=== PATIENT | female | born 1935 | race Caucasian/White ===

== ENCOUNTER 2020-06-04 08:25 | Inpatient (IN) | payer MEDICARE ==
--- NOTE | 2020-06-04 08:45 | ED ---
General Adult HPI - General Chief complaint: Extremity Problem,Nontraumatic Stated complaint: toe infection Time Seen by Provider: 06/04/20 08:30 Source: patient, family, RN notes reviewed, old records reviewed, Caregiver Mode of arrival: ambulatory Limitations: no limitations - History of Present Illness Initial comments: This is a 84-year-old female who presents emergency Department with a black right first toe. Caregiver states that last week it was red and looked may be infected but patient was unwilling to go see her doctor. When she saw the toe today she knew she had been patient immediately. Patient states the total burn his little brother neck has no complaints. The rest of the foot has no signs of infection. Patient's had no fever chills. Patient denies any injury. - Related Data Home Medications Medication Instructions Recorded Confirmed Enalapril [Vasotec] 5 mg PO DAILY 06/04/20 06/04/20 Levothyroxine Sodium [Synthroid] 100 mcg PO DAILY 06/04/20 06/04/20 Metoprolol Tartrate [Lopressor] 50 mg PO DAILY 06/04/20 06/04/20 Potassium Chloride ER [K-Dur 10] 10 meq PO DAILY 06/04/20 06/04/20 Temazepam [Restoril] 15 mg PO HS PRN 06/04/20 06/04/20 carBAMazepine [TEGretol] 400 mg PO TID 06/04/20 06/04/20 Allergies Allergy/AdvReac Type Severity Reaction Status Date / Time No Known Allergies Allergy Verified 06/04/20 10:03 Review of Systems ROS Statement: Those systems with pertinent positive or pertinent negative responses have been documented in the HPI. ROS Other: All systems not noted in ROS Statement are negative. Past Medical History Past Medical History: Hypertension, Thyroid Disorder Additional Past Medical History / Comment(s): Jaw pain, History of Any Multi-Drug Resistant Organisms: None Reported Past Surgical History: No Surgical Hx Reported Past Psychological History: No Psychological Hx Reported Smoking Status: Former smoker Past Alcohol Use History: None Reported Past Drug Use History: None Reported General Exam - General Exam Comments Initial Comments: GENERAL: Patient is well-developed and well-nourished. Patient is nontoxic and well- hydrated and is in no acute distress. ENT: Neck is soft and supple. No significant lymphadenopathy is noted. Oropharynx is clear. Moist mucous membranes. Neck has full range of motion without eliciting any pain. EYES: The sclera were anicteric and conjunctiva were pink and moist. Extraocular movements were intact and pupils were equal round and reactive to light. Eyelids were unremarkable. PULMONARY: Unlabored respirations. Good breath sounds bilaterally. No audible rales rhonchi or wheezing was noted. CARDIOVASCULAR: There is a regular rate and rhythm without any murmurs gallops or rubs. ABDOMEN: Soft and nontender with normal bowel sounds. SKIN: Skin is clear with no lesions or rashes and otherwise unremarkable. NEUROLOGIC: Patient is alert and oriented x3. Cranial nerves II through XII are grossly intact. Motor and sensory are also intact. Normal speech, volume and content. Symmetrical smile. MUSCULOSKELETAL: Normal extremities with adequate strength and full range of motion. Patient's first right toe is black from the tip down to the MTP joint patient has no sensation in that toe LYMPHATICS: No significant lymphadenopathy is noted PSYCHIATRIC: Normal psychiatric evaluation. Limitations: no limitations Course Vital Signs 06/04/20 08:29 Temperature 97.4 F L Pulse Rate 70 Respiratory 20 Rate Blood Pressure 127/79 O2 Sat by Pulse 98 Oximetry Medical Decision Making - Medical Decision Making X-ray of the toe shows I spoke with Dr. Marcos he agreed to admit the patient admitted the patient I wrote admitting orders and I consult as the surgery - Lab Data Result diagrams: 06/04/20 09:19 06/04/20 09:19 Lab Results 06/04/20 06/04/20 06/04/20 Range/Units 09:19 09:19 09:19 WBC 6.9 (3.8-10.6) k/uL RBC 3.73 L (3.80-5.40) m/uL Hgb 11.4 (11.4-16.0) gm/dL Hct 35.9 (34.0-46.0) % MCV 96.3 (80.0-100.0) fL MCH 30.6 (25.0-35.0) pg MCHC 31.8 (31.0-37.0) g/dL RDW 13.1 (11.5-15.5) % Plt Count 314 (150-450) k/uL Neutrophils % 62 % Lymphocytes % 28 % Monocytes % 6 % Eosinophils % 2 % Basophils % 1 % Neutrophils # 4.3 (1.3-7.7) k/uL Lymphocytes # 1.9 (1.0-4.8) k/uL Monocytes # 0.4 (0-1.0) k/uL Eosinophils # 0.1 (0-0.7) k/uL Basophils # 0.0 (0-0.2) k/uL PT 9.6 (9.0-12.0) sec INR 0.9 (<1.2) APTT 27.4 (22.0-30.0) sec Sodium 138 (137-145) mmol/L Potassium 3.9 (3.5-5.1) mmol/L Chloride 104 (98-107) mmol/L Carbon Dioxide 26 (22-30) mmol/L Anion Gap 8 mmol/L BUN 19 H (7-17) mg/dL Creatinine 0.59 (0.52-1.04) mg/dL Est GFR (CKD-EPI)AfAm >90 (>60 ml/min/1.73 sqM) Est GFR (CKD-EPI)NonAf 83 (>60 ml/min/1.73 sqM) Glucose 94 (74-99) mg/dL Calcium 9.2 (8.4-10.2) mg/dL Total Bilirubin 0.5 (0.2-1.3) mg/dL AST 24 (14-36) U/L ALT 17 (4-34) U/L Alkaline Phosphatase 96 (38-126) U/L Total Protein 6.8 (6.3-8.2) g/dL Albumin 3.8 (3.5-5.0) g/dL Disposition Clinical Impression: Gangrenous toe Disposition: ADMITTED IP TO THIS [facility] Referrals: Sergio Marcos MD [Primary Care Provider] - 1-2 days Time of Disposition: 10:08
[2020-06-04 09:33] LABS: Basophils % (A) 1 %; Eosinophils # (A) 0.1 k/uL (0-0.7); Eosinophils % (A) 2 %; HCT 35.9 % (34.0-46.0); HGB 11.4 gm/dL (11.4-16.0); Lymphocytes # (A) 1.9 k/uL (1.0-4.8); Lymphocytes % (A) 28 %; MCH 30.6 pg (25.0-35.0); MCHC 31.8 g/dL (31.0-37.0); MCV 96.3 fL (80.0-100.0); Mean Platelet Volume 7.4; Monocytes # (A) 0.4 k/uL (0-1.0); Monocytes % (A) 6 %; Neutrophils # (A) 4.3 k/uL (1.3-7.7); Neutrophils % (A) 62 %; Platelet Count 314 k/uL (150-450); RBC 3.73 m/uL (3.80-5.40); RDW 13.1 % (11.5-15.5); WBC 6.9 k/uL (3.8-10.6)
[2020-06-04 09:41] LABS: INR 0.9 (<1.2); Partial Thromboplastin Time 27.4 sec (22.0-30.0); Prothrombin Time 9.6 sec (9.0-12.0)
[2020-06-04 09:44] LABS: ALT 17 U/L (4-34); AST 24 U/L (14-36); African American GFR (CKD) >90 (>60 ml/min/1.73 sqM); Albumin 3.8 g/dL (3.5-5.0); Alkaline Phosphatase 96 U/L (38-126); Anion Gap 8 mmol/L; Blood Urea Nitrogen 19 mg/dL (7-17); Calcium 9.2 mg/dL (8.4-10.2); Carbon Dioxide 26 mmol/L (22-30); Chloride 104 mmol/L (98-107); Glucose 94 mg/dL (74-99); Non-African American GFR(CKD) 83 (>60 ml/min/1.73 sqM); Potassium 3.9 mmol/L (3.5-5.1); Sodium 138 mmol/L (137-145); Total Bilirubin 0.5 mg/dL (0.2-1.3); Total Protein 6.8 g/dL (6.3-8.2)
--- NOTE | 2020-06-04 10:08 | XR ---
EXAMINATION TYPE: XR toes RT DATE OF EXAM: 06/04/2020 COMPARISON: None HISTORY: Necrotic toe great toe TECHNIQUE: Three-view right great toe FINDINGS: Valgus deformity of the first digit is evident. Joint spaces and mild narrowing. No acute f ractures evident. No suspicious erosion is identified. IMPRESSION: 1. No suspicious acute changes radiographically apparent.
[2020-06-04] MEDS ORDERED: SODIUM CHLORIDE 0.9% 1,000 ML IV ONE (10:10)
[2020-06-04] MEDS: ACETAMINOPHEN TAB 325 MG TAB PO PRN ×2 (12:53→21:29)
--- NOTE | 2020-06-04 13:45 | P.GSCN ---
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 and patient also had some ankle surgery on the left leg On examination neck is supple no bruit appreciated Chest first and second sound normal good entry both lungs Abdomen abdomen is soft nontender Vascular examination femorals are 1+ on the right side left side is not palpable right foot posterior to dorsal pedis no Doppler signal noted left foot posterior tibial dorsal pedis has a Doppler signal right foot has a big toe gangrene with mild cellulitis Plan is we will arrange for angiogram BUN/creatinine is within normal limit he we can't access this by femoral approach and we will do CTA with runoff follow with you Past Medical History Past Medical History: Hypertension, Thyroid Disorder Additional Past Medical History / Comment(s): Jaw pain, History of Any Multi-Drug Resistant Organisms: None Reported Past Surgical History: Back Surgery, Breast Surgery, Hysterectomy Additional Past Surgical History / Comment(s): fractured left ankle, fractured right arm, left breast partial removal for beign tumor Past Psychological History: No Psychological Hx Reported Smoking Status: Former smoker Past Alcohol Use History: None Reported Past Drug Use History: None Reported Medications and Allergies Home Medications Medication Instructions Recorded Confirmed Type Enalapril [Vasotec] 5 mg PO DAILY 06/04/20 06/04/20 History Levothyroxine Sodium [Synthroid] 100 mcg PO DAILY 06/04/20 06/04/20 History Metoprolol Tartrate [Lopressor] 50 mg PO DAILY 06/04/20 06/04/20 History Potassium Chloride ER [K-Dur 10] 10 meq PO DAILY 06/04/20 06/04/20 History Temazepam [Restoril] 15 mg PO HS PRN 06/04/20 06/04/20 History carBAMazepine [TEGretol] 400 mg PO TID 06/04/20 06/04/20 History Allergies Allergy/AdvReac Type Severity Reaction Status Date / Time No Known Allergies Allergy Verified 06/04/20 10:03 Surgical - Exam Vital Signs Temp Pulse Resp BP Pulse Ox 97.4 F L 70 20 127/79 98 06/04/20 08:29 06/04/20 08:29 06/04/20 08:29 06/04/20 08:29 06/04/20 08:29 Results - Labs 06/04/20 09:19 06/04/20 09:19 Abnormal Lab Results - Last 24 Hours (Table) 06/04/20 06/04/20 Range/Units 09:19 09:19 RBC 3.73 L (3.80-5.40) m/uL BUN 19 H (7-17) mg/dL Diabetes panel 06/04/20 Range/Units 09:19 Sodium 138 (137-145) mmol/L Potassium 3.9 (3.5-5.1) mmol/L Chloride 104 (98-107) mmol/L Carbon Dioxide 26 (22-30) mmol/L BUN 19 H (7-17) mg/dL Creatinine 0.59 (0.52-1.04) mg/dL Glucose 94 (74-99) mg/dL Calcium 9.2 (8.4-10.2) mg/dL AST 24 (14-36) U/L ALT 17 (4-34) U/L Alkaline Phosphatase 96 (38-126) U/L Total Protein 6.8 (6.3-8.2) g/dL Albumin 3.8 (3.5-5.0) g/dL Calcium panel 06/04/20 Range/Units 09:19 Calcium 9.2 (8.4-10.2) mg/dL Albumin 3.8 (3.5-5.0) g/dL Pituitary panel 06/04/20 Range/Units 09:19 Sodium 138 (137-145) mmol/L Potassium 3.9 (3.5-5.1) mmol/L Chloride 104 (98-107) mmol/L Carbon Dioxide 26 (22-30) mmol/L BUN 19 H (7-17) mg/dL Creatinine 0.59 (0.52-1.04) mg/dL Glucose 94 (74-99) mg/dL Calcium 9.2 (8.4-10.2) mg/dL Adrenal panel 06/04/20 Range/Units 09:19 Sodium 138 (137-145) mmol/L Potassium 3.9 (3.5-5.1) mmol/L Chloride 104 (98-107) mmol/L Carbon Dioxide 26 (22-30) mmol/L BUN 19 H (7-17) mg/dL Creatinine 0.59 (0.52-1.04) mg/dL Glucose 94 (74-99) mg/dL Calcium 9.2 (8.4-10.2) mg/dL Total Bilirubin 0.5 (0.2-1.3) mg/dL AST 24 (14-36) U/L ALT 17 (4-34) U/L Alkaline Phosphatase 96 (38-126) U/L Total Protein 6.8 (6.3-8.2) g/dL Albumin 3.8 (3.5-5.0) g/dL
[2020-06-04] MEDS ORDERED: SODIUM CHLORIDE 0.9% 1,000 ML in EMPTY BAG 1 BAG IV ONE (15:40)
[2020-06-04 16:22] LABS: Basophils % (A) 1 %; Eosinophils # (A) 0.1 k/uL (0-0.7); Eosinophils % (A) 2 %; HCT 32.3 % (34.0-46.0); HGB 10.6 gm/dL (11.4-16.0); Lymphocytes # (A) 1.1 k/uL (1.0-4.8); Lymphocytes % (A) 16 %; MCH 31.8 pg (25.0-35.0); MCHC 32.8 g/dL (31.0-37.0); MCV 96.8 fL (80.0-100.0); Mean Platelet Volume 7.3; Monocytes # (A) 0.4 k/uL (0-1.0); Monocytes % (A) 6 %; Neutrophils # (A) 4.9 k/uL (1.3-7.7); Neutrophils % (A) 74 %; Platelet Count 272 k/uL (150-450); RBC 3.33 m/uL (3.80-5.40); RDW 12.8 % (11.5-15.5); WBC 6.6 k/uL (3.8-10.6)
[2020-06-04 16:55] LABS: African American GFR (CKD) >90 (>60 ml/min/1.73 sqM); Anion Gap 6 mmol/L; Blood Urea Nitrogen 19 mg/dL (7-17); Calcium 8.7 mg/dL (8.4-10.2); Carbon Dioxide 26 mmol/L (22-30); Chloride 104 mmol/L (98-107); Glucose 121 mg/dL (74-99); Non-African American GFR(CKD) 87 (>60 ml/min/1.73 sqM); Potassium 3.6 mmol/L (3.5-5.1); Sodium 136 mmol/L (137-145)
[2020-06-04] MEDS: carBAMazepine 200 MG TAB PO SCH ×2 (17:05→21:41)
[2020-06-04] MEDS ORDERED: TEMAZEPAM 15 MG CAP PO SCH (21:00)
[2020-06-05 05:40] LABS: Glucose,Whole Blood 88 mg/dL (75-99)
[2020-06-05] MEDS: LEVOTHYROXINE 100 MCG TAB PO SCH (05:40)
[2020-06-05] MEDS: POTASSIUM CHLORIDE ER 10 MEQ TAB.ER.PRT PO SCH (05:40)
[2020-06-05] MEDS: carBAMazepine 200 MG TAB PO SCH ×3 (05:40→21:18)
[2020-06-05] MEDS: METOPROLOL TARTRATE 50 MG TAB PO SCH (05:40)
[2020-06-05 07:13] LABS: Glucose,Whole Blood 96 mg/dL (75-99)
[2020-06-05] MEDS ORDERED: IV FLUID CONTINUATION 1,000 ML IV ONE (08:00)
[2020-06-05] MEDS: MIDAZOLAM 2 MG/2 ML VIAL IV ONE ×2 (08:10→08:28)
[2020-06-05] MEDS ORDERED: LIDOCAINE 1% INJ 10MG/ML (20 ML MDV) SQ ONE ×3 (08:20→08:50)
[2020-06-05] MEDS: fentaNYL (PF) 50 MCG/ML 2 ML AMP IV ONE ×2 (08:26→08:51)
[2020-06-05] MEDS ORDERED: lisinopriL 5 MG TAB PO SCH (09:00)
[2020-06-05] MEDS ORDERED: IOPAMIDOL-250 100ML BTL INTRAARTER ONE ×2 (09:04)
[2020-06-05] MEDS ORDERED: KETOROLAC 30 MG/ML 1 ML VIAL IVP PRN (09:41)
[2020-06-05] MEDS ORDERED: QUEtiapine 25 MG TAB PO PRN (09:53)
[2020-06-05 11:22] LABS: Glucose,Whole Blood 111 mg/dL (75-99)
[2020-06-05 13:49] LABS: Hemoglobin A1C 5.3 % (4.0-6.0)
--- NOTE | 2020-06-05 14:10 | P.CONS ---
History of Present Illness - Reason for Consult Consult date: 06/04/20 Right big toe gangrene and antibiotic recommendations Requesting physician: Matt Garduno - Chief Complaint Right big toe discoloration x few week - History of Present Illness Patient is a 84-year-old female who has been brought into the ER for evaluation of black discoloration of her right big toe the patient has been going on for couple of weeks it started after the patient cut her nails very short subsequently she noticed the right big toe becoming swollen and red and subsequently changed color to become more of a blackish discoloration patient was noticed to have more swelling and redness to the right big toe last week and the patient was advised to go to the hospital however she refused with persistent worsening of her right big toe the caregiver decided to bring her to the ER this morning, patient reportedly was afebrile she did have a normal white count patient did have x-rays of the right foot we did shows no suspicious use acute changes radiologically apparent with concern for possible cellulitis with a dry gangrene infection disease was consulted for recommendations regarding antibiotic therapy Review of Systems Positive point has been mentioned in the HPI rest of the systems are negative Past Medical History Past Medical History: Hypertension, Thyroid Disorder Additional Past Medical History / Comment(s): Jaw pain, History of Any Multi-Drug Resistant Organisms: None Reported Past Surgical History: Back Surgery, Breast Surgery, Hysterectomy Additional Past Surgical History / Comment(s): fractured left ankle, fractured right arm, left breast partial removal for beign tumor Past Psychological History: No Psychological Hx Reported Smoking Status: Former smoker Past Alcohol Use History: None Reported Past Drug Use History: None Reported Medications and Allergies Home Medications Medication Instructions Recorded Confirmed Type Enalapril [Vasotec] 5 mg PO DAILY 06/04/20 06/04/20 History Levothyroxine Sodium [Synthroid] 100 mcg PO DAILY 06/04/20 06/04/20 History Metoprolol Tartrate [Lopressor] 50 mg PO DAILY 06/04/20 06/04/20 History Potassium Chloride ER [K-Dur 10] 10 meq PO DAILY 06/04/20 06/04/20 History Temazepam [Restoril] 15 mg PO HS PRN 06/04/20 06/04/20 History carBAMazepine [TEGretol] 400 mg PO TID 06/04/20 06/04/20 History Allergies Allergy/AdvReac Type Severity Reaction Status Date / Time Latex, Natural Rubber Allergy Rash/Hives Verified 06/04/20 14:39 Physical Exam Vitals: Vital Signs Temp Pulse Pulse Resp BP BP Pulse Ox 06/04/20 20:24 98.5 F 69 18 118/68 94 L 06/04/20 16:00 58 L 20 06/04/20 14:10 96.0 F L 58 L 20 162/89 98 06/04/20 11:54 97.6 F 72 18 146/68 97 06/04/20 10:54 75 17 139/67 97 06/04/20 08:29 97.4 F L 70 20 127/79 98 Intake and Output 06/04/20 06/04/20 06/04/20 06:59 14:59 22:59 Intake Total 200 480 Balance 200 480 Intake: Oral 200 480 Other: Voiding Method Toilet Toilet Weight 72.575 kg GENERAL DESCRIPTION: An elderly female lying in bed, no distress. No tachypnea or accessory muscle of respiration use. HEENT: Shows Pallor , no scleral icterus. Oral mucous membrane is dry. No pharyngeal erythema or thrush NECK: Trachea central, no thyromegaly. LUNGS: Unlabored breathing. Clear to auscultation anteriorly. No wheeze or crackle. HEART: S1, S2, regular rate and rhythm. No loud murmur ABDOMEN: Soft, no tenderness , guarding or rigidity, no organomegaly EXTREMITIES: No edema of feet. Right big toe necrotic with some swelling and minimal redness or foul-smelling drainage SKIN: No rash, no masses palpable. NEUROLOGICAL: The patient is awake, alert, oriented x3, mood and affect normal. Results CBC & Chem 7: 06/04/20 15:44 06/04/20 15:44 Labs: Abnormal Lab Results - Last 24 Hours (Table) 06/04/20 06/04/20 06/04/20 Range/Units 09:19 09:19 15:44 RBC 3.73 L 3.33 L (3.80-5.40) m/uL Hgb 10.6 L (11.4-16.0) gm/dL Hct 32.3 L (34.0-46.0) % Sodium (137-145) mmol/L BUN 19 H (7-17) mg/dL Glucose (74-99) mg/dL 07/17/20 Range/Units 15:44 RBC (3.80-5.40) m/uL Hgb (11.4-16.0) gm/dL Hct (34.0-46.0) % Sodium 136 L (137-145) mmol/L BUN 19 H (7-17) mg/dL Glucose 121 H (74-99) mg/dL Assessment and Plan Assessment: 1-patient with her right big toe gangrene which may have started as a trauma from her cutting the nail short with subsequent cellulitis and now with adenosine which is mostly dry however there is concern for possible secondary infection likely from gram-positive skin estrella, in this patient with no recent history of antibiotic exposure no history of diabetes or PAD (1) Gangrenous toe Current Visit: Yes Status: Acute Code(s): I96 - GANGRENE, NOT ELSEWHERE CLASSIFIED SNOMED Code(s): 433947131 Plan: 1- we will empirically start the patient on cefazolin 2 g every 8 hours 2-drug protective dressing to the right big toe and await angiogram scheduled for tomorrow We will follow on clinical condition and cultures to further adjust medication if needed Thank you for this consultation will follow this patient with you Time with Patient: Greater than 30
--- NOTE | 2020-06-05 14:42 | PN ---
PROGRESS NOTE DATE OF SERVICE: 06/05/2020 REASON FOR FOLLOW UP: Right big toe gangrene with question of cellulitis. INTERVAL HISTORY: Patient is currently afebrile. Patient is breathing comfortably. The patient is status post angiogram this morning with results currently pending. No chest pain or cough. No pain or worsening pain in the right big toe. PHYSICAL EXAMINATION: Blood pressure 127/67 with a pulse of 77, temperature 97.5. She is 97% on room air. General description is an elderly female lying in bed in no distress. Respiratory system: Unlabored breathing, clear to auscultation anteriorly. Heart S1, S2. Regular rate and rhythm. Abdomen soft, no tenderness. Right big toe with necrotic changes. Minimal surrounding redness. No foul smelling drainage. LABS: Hemoglobin is 10.8, white count 6.6 yesterday. No blood work has been done today. Blood culture has been negative. DIAGNOSTIC IMPRESSION AND PLAN: Patient with right big toe dry gangrene with question of possible secondary cellulitis. The patient is medically covered with cefazolin, to continue. Will wait for the angiogram results and possible amputation. Continue supportive care. MMODL / IJN: [id number] /
--- NOTE | 2020-06-05 15:27 | P.HPIM ---
History of Present Illness 84-year-old doesn't female came in with Complaints of black discoloration of the right big toe has been going on for couple weeks swollen and red and then became more blackish. Patient didn't have any fever chills. Patient does have hearing problems patient is a oriented 3 but because of the hearing problems patient is a poor historian and patient was evaluated infectious disease as well as a vascular surgery vascular surgery is planning on amputation of the toe and the patient was started on ceftezole and infectious disease. She doesn't have any leukocytosis or fever at this time. Review of Systems Review of systems are negative except those mentioned above most of the review of systems are limited by her hearing problems. Past Medical History Past Medical History: Hypertension, Thyroid Disorder Additional Past Medical History / Comment(s): Jaw pain, History of Any Multi-Drug Resistant Organisms: None Reported Past Surgical History: Back Surgery, Breast Surgery, Hysterectomy Additional Past Surgical History / Comment(s): fractured left ankle, fractured right arm, left breast partial removal for beign tumor Past Psychological History: No Psychological Hx Reported Smoking Status: Former smoker Past Alcohol Use History: None Reported Past Drug Use History: None Reported Medications and Allergies Home Medications Medication Instructions Recorded Confirmed Type Enalapril [Vasotec] 5 mg PO DAILY 06/04/20 06/04/20 History Levothyroxine Sodium [Synthroid] 100 mcg PO DAILY 06/04/20 06/04/20 History Metoprolol Tartrate [Lopressor] 50 mg PO DAILY 06/04/20 06/04/20 History Potassium Chloride ER [K-Dur 10] 10 meq PO DAILY 06/04/20 06/04/20 History Temazepam [Restoril] 15 mg PO HS PRN 06/04/20 06/04/20 History carBAMazepine [TEGretol] 400 mg PO TID 06/04/20 06/04/20 History Allergies Allergy/AdvReac Type Severity Reaction Status Date / Time Latex, Natural Rubber Allergy Rash/Hives Verified 06/04/20 14:39 Physical Exam Vitals: Vital Signs Temp Pulse Pulse Resp BP Pulse Ox 06/05/20 11:19 97.5 F L 77 18 127/67 97 06/05/20 05:00 98.1 F 81 18 129/62 95 06/04/20 20:24 98.5 F 69 18 118/68 94 L 06/04/20 16:00 58 L 20 Intake and Output 06/05/20 06/05/20 06/05/20 06:59 14:59 22:59 Intake Total 0 100 Balance 0 100 Intake: IV 100 Oral 0 Other: Voiding Method Toilet # Voids 1 # Bowel Movements 0 PHYSICAL EXAMINATION: GENERAL: The patient is alert and oriented x3, not in any acute distress. Well developed, well nourished. HEENT: Pupils are round and equally reacting to light. EOMI. No scleral icterus. No conjunctival pallor. Normocephalic, atraumatic. No pharyngeal erythema. No thyromegaly. CARDIOVASCULAR: S1 and S2 present. No murmurs, rubs, or gallops. PULMONARY: Chest is clear to auscultation, no wheezing or crackles. ABDOMEN: Soft, nontender, nondistended, normoactive bowel sounds. No palpable organomegaly. MUSCULOSKELETAL: No joint swelling or deformity. EXTREMITIES: No cyanosis, clubbing, or pedal edema. She has a blackish discoloration of the right big toe with some set redness on the dorsal aspect of the right foot NEUROLOGICAL: Gross neurological examination did not reveal any focal deficits. SKIN: No rashes. Results CBC & Chem 7: 06/04/20 15:44 06/04/20 15:44 Labs: Abnormal Lab Results - Last 24 Hours (Table) 06/04/20 06/04/20 06/05/20 Range/Units 15:44 15:44 11:21 RBC 3.33 L (3.80-5.40) m/uL Hgb 10.6 L (11.4-16.0) gm/dL Hct 32.3 L (34.0-46.0) % Sodium 136 L (137-145) mmol/L BUN 19 H (7-17) mg/dL Glucose 121 H (74-99) mg/dL POC Glucose (mg/dL) 111 H (75-99) mg/dL Microbiology - Last 24 Hours (Table) 06/04/20 09:19 Blood Culture - Preliminary Blood No Growth after 24 hours Thrombosis Risk Factor Assmnt - Choose All That Apply Each Risk Factor Represents 3 Points: Age 75 years or older Thrombosis Risk Factor Assessment Total Risk Factor Score: 3 Thrombosis Risk Factor Assessment Level: Moderate Risk Assessment and Plan Plan: - gangrene of the right great toe it appears to mostly dry gangrene because the redness and possible selective so the posterior aspect of the foot infectious disease is recommending antibiotics. -Hypertension -Hypothyroidism DVT prophylaxis with subcutaneous heparin -Patient may have mild dementia definitely had his first hospitalization related to delirium for which we'll use Seroquel an as-needed basis if she has any daily use episodes at nighttime. For above-mentioned chronic medical problems patient will resume appropriate home medications
[2020-06-05 17:20] LABS: Glucose,Whole Blood 100 mg/dL (75-99)
[2020-06-05 20:11] LABS: Glucose,Whole Blood 148 mg/dL (75-99)
[2020-06-05] MEDS: FAMOTIDINE 20 MG TAB PO SCH (21:18)
[2020-06-05] MEDS: ACETAMINOPHEN TAB 325 MG TAB PO PRN (21:21)
[2020-06-06] MEDS: LEVOTHYROXINE 100 MCG TAB PO SCH (06:02)
[2020-06-06 07:05] LABS: Glucose,Whole Blood 98 mg/dL (75-99)
[2020-06-06] MEDS: ENOXAPARIN 40 MG/0.4 ML SYRINGE SQ SCH (08:55)
[2020-06-06] MEDS: METOPROLOL TARTRATE 50 MG TAB PO SCH (08:55)
[2020-06-06] MEDS: FAMOTIDINE 20 MG TAB PO SCH ×2 (08:55→21:48)
[2020-06-06] MEDS: POTASSIUM CHLORIDE ER 10 MEQ TAB.ER.PRT PO SCH (08:56)
[2020-06-06] MEDS: carBAMazepine 200 MG TAB PO SCH ×3 (08:56→21:48)
[2020-06-06 11:35] LABS: Glucose,Whole Blood 127 mg/dL (75-99)
--- NOTE | 2020-06-06 13:20 | P.PN ---
Subjective 84-year-old doesn't female came in with Complaints of black discoloration of the right big toe has been going on for couple weeks swollen and red and then became more blackish. Patient didn't have any fever chills. Patient does have hearing problems patient is a oriented 3 but because of the hearing problems patient is a poor historian and patient was evaluated infectious disease as well as a vascular surgery vascular surgery is planning on amputation of the toe and the patient was started on ceftezole and infectious disease. She doesn't have any leukocytosis or fever at this time. 06/06/2020 No overnight events vascular surgery is not planning on any amputation procedure patient will be discharged on antibiotics to subacute recommendation tomorrow amputation will be planned down the line. Review of systems: Patient has hearing problems because of its unable to get much of the review of systems but patient denied any complaints All inpatient medications were reviewed and appropriate changes in these medications as dictated in the interval history and assessment and plan. Objective - Vital Signs Vital signs: Vital Signs Temp 97.6 F 06/06/20 11:11 Pulse 82 06/06/20 11:11 Resp 18 06/06/20 11:11 BP 159/68 06/06/20 11:11 Pulse Ox 95 06/06/20 11:11 Intake & Output 06/05/20 06/06/20 06/06/20 18:59 06:59 18:59 Intake Total 100 700 Balance 100 700 Intake: IV 100 Oral 700 Other: Voiding Method Toilet Toilet Toilet # Voids 1 1 1 # Bowel Movements 0 - Exam PHYSICAL EXAMINATION: GENERAL: The patient is alert and oriented x3, not in any acute distress. Well developed, well nourished. HEENT: Pupils are round and equally reacting to light. EOMI. No scleral icterus. No conjunctival pallor. Normocephalic, atraumatic. No pharyngeal erythema. No thyromegaly. CARDIOVASCULAR: S1 and S2 present. No murmurs, rubs, or gallops. PULMONARY: Chest is clear to auscultation, no wheezing or crackles. ABDOMEN: Soft, nontender, nondistended, normoactive bowel sounds. No palpable organomegaly. MUSCULOSKELETAL: No joint swelling or deformity. EXTREMITIES: No cyanosis, clubbing, or pedal edema. She has a blackish discoloration of the right big toe with some set redness on the dorsal aspect of the right foot NEUROLOGICAL: Gross neurological examination did not reveal any focal deficits. SKIN: No rashes. - Labs CBC & Chem 7: 06/04/20 15:44 06/04/20 15:44 Labs: Abnormal Lab Results - Last 24 Hours (Table) 06/05/20 06/05/20 06/06/20 Range/Units 17:16 20:04 11:14 POC Glucose (mg/dL) 100 H 148 H 127 H (75-99) mg/dL Microbiology - Last 24 Hours (Table) 06/04/20 09:19 Blood Culture - Preliminary Blood No Growth after 48 hours Assessment and Plan Plan: - gangrene of the right great toe it appears to mostly dry gangrene because the redness and possible cellulitis in the the posterior aspect of the foot infectious disease is recommending antibiotics. Patient is presently on Zosyn which is being continued -Hypertension -Hypothyroidism DVT prophylaxis with subcutaneous heparin -Patient may have mild dementia expected to have hospitalization related to delirium for which we'll use Seroquel an as-needed basis if she has any daily use episodes at nighttime.
[2020-06-06 17:00] LABS: Glucose,Whole Blood 125 mg/dL (75-99)
[2020-06-06] MEDS: ACETAMINOPHEN TAB 325 MG TAB PO PRN (21:53)
--- NOTE | 2020-06-07 01:17 | PN ---
PROGRESS NOTE DATE OF SERVICE: 06/06/2020 REASON FOR FOLLOWUP: Right big toe gangrene and possible cellulitis. INTERVAL HISTORY: The patient is currently afebrile. The patient is breathing comfortably. The patient denies having any chest pain or shortness of breath or cough. No nausea, vomiting, abdominal pain or pain to the right big toe. PHYSICAL EXAMINATION: Blood pressure 159/68 with a pulse of 82, temperature 97.6. She is 95% room air. General description is an elderly female lying in bed in no distress. RESPIRATORY SYSTEM: Unlabored breathing, clear to auscultation anteriorly. HEART: S1, S2. Regular rate and rhythm. ABDOMEN: Soft, no tenderness. Right big toe with gangrenous changes, minimal redness. DIAGNOSTIC IMPRESSION AND PLAN: Patient with right big toe gangrene with possible cellulitis. Waiting possible amputation tomorrow. Continue with cefazolin and monitor clinical course closely. MMODL / IJN: [id number] /
[2020-06-07 05:27] VITALS: RESP 16
[2020-06-07] MEDS: LEVOTHYROXINE 100 MCG TAB PO SCH (05:45)
[2020-06-07 07:20] LABS: HCT 30.9 % (34.0-46.0); HGB 9.9 gm/dL (11.4-16.0); MCH 30.9 pg (25.0-35.0); MCHC 31.9 g/dL (31.0-37.0); MCV 96.7 fL (80.0-100.0); Mean Platelet Volume 6.9; Platelet Count 269 k/uL (150-450); WBC 5.7 k/uL (3.8-10.6)
[2020-06-07 07:33] LABS: African American GFR (CKD) >90 (>60 ml/min/1.73 sqM); Anion Gap 4 mmol/L; Blood Urea Nitrogen 10 mg/dL (7-17); Calcium 8.4 mg/dL (8.4-10.2); Carbon Dioxide 30 mmol/L (22-30); Chloride 101 mmol/L (98-107); Glucose 104 mg/dL (74-99); Non-African American GFR(CKD) 89 (>60 ml/min/1.73 sqM); Potassium 3.6 mmol/L (3.5-5.1); Sodium 135 mmol/L (137-145)
--- NOTE | 2020-06-07 08:19 | P.PN ---
Subjective Principal diagnosis: Gangrene of the right foot. The patient is essentially admitted for gangrenous foot with necrosis of the right first digit. There is starting show signs of further necrosis of the foot. Studies are pending for circulatory compromise. The patient does not seem in any pain. Objective - Vital Signs Vital signs: Vital Signs Temp 98.4 F 06/07/20 05:27 Pulse 89 06/07/20 05:27 Resp 16 06/07/20 05:27 BP 163/64 06/07/20 05:27 Pulse Ox 98 06/07/20 05:27 Intake & Output 06/06/20 06/07/20 06/07/20 18:59 06:59 18:59 Intake Total 50 Balance 50 Intake: Intake, IV Titration 50 Amount ceFAZolin 2 gm In Sodium 50 Chloride 0.9% 50 ml @ 100 mls/hr IVPB Q8HR [facility] Rx# :[id number] Other: Voiding Method Toilet Toilet Toilet Bedside Commode Bedside Commode # Voids 1 1 # Bowel Movements 1 - Constitutional General appearance: Present: average body habitus - EENT Eyes: Absent: abnormal pupil - Neck Neck: Absent: lymphadenopathy - Respiratory Respiratory: bilateral: CTA - Cardiovascular Rhythm: regular Heart sounds: normal: S1, S2 Abnormal Heart Sounds: Absent: S3 Gallop - Gastrointestinal General gastrointestinal: Present: soft. Absent: tenderness - Integumentary Integumentary Comment(s): Gangrenous right first digit of the foot. Integumentary: Present: cellulitis - Labs CBC & Chem 7: 06/07/20 06:52 06/07/20 06:52 Labs: Abnormal Lab Results - Last 24 Hours (Table) 06/06/20 06/06/20 06/07/20 Range/Units 11:14 16:53 06:52 RBC 3.20 L (3.80-5.40) m/uL Hgb 9.9 L (11.4-16.0) gm/dL Hct 30.9 L (34.0-46.0) % Sodium (137-145) mmol/L Creatinine (0.52-1.04) mg/dL Glucose (74-99) mg/dL POC Glucose (mg/dL) 127 H 125 H (75-99) mg/dL 06/07/20 Range/Units 06:52 RBC (3.80-5.40) m/uL Hgb (11.4-16.0) gm/dL Hct (34.0-46.0) % Sodium 135 L (137-145) mmol/L Creatinine 0.49 L (0.52-1.04) mg/dL Glucose 104 H (74-99) mg/dL POC Glucose (mg/dL) (75-99) mg/dL Microbiology - Last 24 Hours (Table) 06/04/20 09:19 Blood Culture - Preliminary Blood No Growth after 48 hours Assessment and Plan (1) Gangrenous toe Current Visit: Yes Status: Acute Code(s): I96 - GANGRENE, NOT ELSEWHERE CLASSIFIED SNOMED Code(s): 647062564 Plan: Appreciate surgical input. Await level of amputation decision. Consul Dr. May for appropriate antibiotic therapy. New pack check CBC and CMP in a.m. Time with Patient: Less than 30
[2020-06-07] MEDS: carBAMazepine 200 MG TAB PO SCH ×2 (10:04→15:27)
[2020-06-07] MEDS: ENOXAPARIN 40 MG/0.4 ML SYRINGE SQ SCH (10:04)
[2020-06-07] MEDS: METOPROLOL TARTRATE 50 MG TAB PO SCH (10:05)
[2020-06-07] MEDS: FAMOTIDINE 20 MG TAB PO SCH (10:05)
[2020-06-07] MEDS: POTASSIUM CHLORIDE ER 10 MEQ TAB.ER.PRT PO SCH (10:05)
[2020-06-07] MEDS: ACETAMINOPHEN TAB 325 MG TAB PO PRN (12:39)
--- NOTE | 2020-06-07 12:58 | P.PN ---
Progress Note - Text 84-year-old white female, patient came with the right foot big toe dry gangrene of the 1 week duration no history of trauma or insect bite patient has history of hypertension no history of diabetes femorals 1+ on the left side right side is not palpable patient has a no Doppler signal on the right foot. 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
--- NOTE | 2020-06-07 13:20 | PN ---
PROGRESS NOTE DATE OF SERVICE: 06/07/2020 REASON FOR FOLLOW UP: Right big toe gangrene and cellulitis. INTERVAL HISTORY: Patient is currently afebrile. The patient is breathing comfortably. Denies any chest pain or cough. No abdominal pain. No diarrhea. No worsening pain to the right big toe. PHYSICAL EXAMINATION: Blood pressure 153/64 with a pulse of 89, temperature 98.4, she is 98% on room air. General description is an elderly female lying in bed in no distress. Respiratory system: Unlabored breathing. Lungs clear to auscultation anteriorly. Heart S1, S2. Regular rhythm. ABDOMEN: Soft. No tenderness. Right big toe with gangrenous changes. Minimal redness, no drainage. LABS: Hemoglobin 9.8, white count 5.7. Creatinine 0.49. Blood culture has been negative. DIAGNOSTIC IMPRESSION AND PLAN: Patient with right big toe gangrene. The patient did have angiogram unfortunately is waiting for Dr. Saunders to read it and he is available only when he comes to the hospital only once a week, and that is Sunday. Plan is for [facility] and bring her back for surgery. We will give a short course of oral Keflex. MMODL / IJN: [id number] /
[2020-06-07 13:48] VITALS: BP 160/77; PULSE 86; TEMP 98.2
--- NOTE | 2020-06-07 14:03 | P.DS ---
Providers Date of admission: 06/04/20 10:12 Attending physician: Sergio Marcos Consults: 06/04/20 10:10 Consult Physician Urgent Consulting Provider: Matt Garduno Consult Reason/Comments: Gangrenous toe Do you want consulting provider notified?: Yes 06/04/20 15:05 Consult Physician Routine Consulting Provider: Claudia May Consult Reason/Comments: gangrene right greater toe Do you want consulting provider notified?: Yes Primary care physician: Sergio Marcos - Discharge Diagnosis(es) (1) Gangrenous toe Current Visit: Yes Status: Acute Hospital Course: The patient is here and admitted because of dry gangrene of the right first di. Evaluation with hydration and appropriate antibiotic tr be discharged on Keflex and will be returned back for appropriate amputation of the right first digit and possibly the forefoot. The patient is discharged in stable condition to follow-up in the next several days as an outpatient for surgery. Patient Condition at Discharge: Serious Plan - Discharge Summary Discharge Rx Participant: No New Discharge Prescriptions: New Cephalexin [Keflex] 500 mg PO Q8HR #21 cap Famotidine [Pepcid] 20 mg PO BID #60 tab QUEtiapine [SEROquel] 25 mg PO HS PRN #30 tab PRN Reason: Delirium Continue Temazepam [Restoril] 15 mg PO HS PRN PRN Reason: Insomnia Potassium Chloride ER [K-Dur 10] 10 meq PO DAILY Metoprolol Tartrate [Lopressor] 50 mg PO DAILY Levothyroxine Sodium [Synthroid] 100 mcg PO DAILY Enalapril [Vasotec] 5 mg PO DAILY carBAMazepine [TEGretol] 400 mg PO TID Discharge Medication List Enalapril [Vasotec] 5 mg PO DAILY 06/04/20 [History] Levothyroxine Sodium [Synthroid] 100 mcg PO DAILY 06/04/20 [History] Metoprolol Tartrate [Lopressor] 50 mg PO DAILY 06/04/20 [History] Potassium Chloride ER [K-Dur 10] 10 meq PO DAILY 06/04/20 [History] Temazepam [Restoril] 15 mg PO HS PRN 06/04/20 [History] carBAMazepine [TEGretol] 400 mg PO TID 06/04/20 [History] Cephalexin [Keflex] 500 mg PO Q8HR #21 cap 06/07/20 [Rx] Famotidine [Pepcid] 20 mg PO BID #60 tab 06/07/20 [Rx] QUEtiapine [SEROquel] 25 mg PO HS PRN #30 tab 06/07/20 [Rx] Follow up Appointment(s)/Referral(s): Sergio Marcos MD [Primary Care Provider] - 3 Days Discharge Disposition: TRANSFER TO SNF/ECF
--- NOTE | 2020-06-07 15:21 | IR ---
Fluoroscopy HISTORY: Peripheral vascular occlusive disease, nonhealing wound 4.9 minutes fluoroscopy time supplied to the referring clinician. 226 intraoperative C-arm images do cument the procedure. See dictated report from vascular surgery.
--- NOTE | 2020-06-09 12:10 | P.ARTDOP ---
Arterial Doppler LOWER EXTREMITY ARTERIAL DOPPLER: DATE OF SERVICE: 06/04/2020 Reason for study: Gangrene right great toe. Doppler waveforms: Atypical bilaterally throughout. Pulse volume recording: Toe waveforms nearly flat line bilaterally. Pressure gradients: Unable to get signals on the right. Significant gradient above the ankle on the left. Ankle-brachial indices: Can't recorded on the right. 0.45 on the left.. 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 Severe left fem-pop disease with probable iliac component on the left..
--- NOTE | 2020-06-09 23:48 | PCN ---
PROCEDURE NOTE PREOPERATIVE DIAGNOSIS: Right foot big toe dry gangrene. PROCEDURE: Aortogram with runoff. DESCRIPTION OF PROCEDURE: This patient brought to the slab grinder. Right and left groins were prepped and draped in the usual sterile manner. Ultrasound-guided micropuncture was introduced right common femoral vein micropuncture was passed. We could not advance the guidewire to the iliac artery. Then left groin was accessed with 1% lidocaine and a micropuncture introduced. Left common femoral artery micropuncture guidewire was passed. Then we passed a 4- Austrian sheath. Then we passed a guidewire, which was parked at the left aorta and then we passed a 5-Austrian sheath on the top of the guidewire. Then we used a Glidewire, which was parked at the renal level and pigtail catheter was on the top of the guidewire, hooked to the power injector. Aortogram flush was obtained. Both the arteries were visualized. Aorta was found to be patent. The iliac artery, right common iliac artery is totally occluded. The left common iliac artery and external iliac artery were found to be patent. Femoral artery was visualized on the left side. On the right side, there is short segment femoral artery visualized. The superficial femoral artery: On the right side superficial femoral artery is occluded. Left side superficial femoral artery was found to be patent. Popliteal artery: Left popliteal artery were visualized. Right popliteal artery was not visualized. There were some collaterals noted and anterior tibial, posterior tibial peroneal was not visualized on the right side. There were multiple collaterals noted on the left side. Anterior tibial and posterior tibial was found to be patent. IMPRESSION: 1. 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 2. Right superficial femoral artery is occluded. 3. Popliteal artery is occluded with no flow noted into the infrapopliteal vessels. Multiple collaterals noted. Catheter and sheath were removed. Pressure held. Patient tolerated the procedure well. MMODL / IJN: [id number] /
== END 2020-06-07 17:00 | DRG 300 ==
LOC: SUPCPDRO 08:25 → EC 08:25 → 5NMEDONC 10:12
PROVIDERS: ADMIT Family Medicine; ATTEND Family Medicine
PROC: B41D1ZZ Fluoroscopy of Aorta and Bilateral Lower Extremity Arteries using Low Osmolar Contrast (ICD-10-PCS; principal; 2020-06-05 08:00)
DX: I96 Gangrene, not elsewhere classified (principal); L03.115 Cellulitis of right lower limb; I10 Essential (primary) hypertension; E03.9 Hypothyroidism, unspecified; Z79.890 Hormone replacement therapy; Z79.899 Other long term (current) drug therapy; Z87.891 Personal history of nicotine dependence; Z90.710 Acquired absence of both cervix and uterus; Z11.59 Encounter for screening for other viral diseases; Z91.040 Latex allergy status; H91.90 Unspecified hearing loss, unspecified ear
CPT/HCPCS: 36415; 80048; 80053; 83036; 85025; 85027; 85610; 85730; 87040; 93922; 96360; 99285